=== PATIENT | female | born 1960 | race Caucasian/White ===

== ENCOUNTER 2018-04-10 17:02 | Outpatient (CLI) | payer OTHER | END 2018-04-10 17:03 | LOC: LABRHC 17:02 | PROVIDERS: ATTEND Family Medicine | DX: R30.0 Dysuria (principal); B96.20 Unspecified Escherichia coli [E. coli] as the cause of diseases classified elsewhere; Z16.29 Resistance to other single specified antibiotic | CPT/HCPCS: 87086; 87186 ==

== ENCOUNTER 2018-07-09 15:33 | Outpatient (CLI) | payer OTHER | END 2018-07-09 15:35 | LOC: LAB 15:33 | PROVIDERS: ATTEND Family Medicine | DX: R30.0 Dysuria (principal) | CPT/HCPCS: 87086 ==